=== PATIENT | female | born 1980 | race Two or more races ===

== ENCOUNTER 2019-07-15 02:49 | Inpatient (IN) | payer BC ==
[~2019-07-15] VITALS: Ht 162.6 cm; Wt 49.5 kg
[~2019-07-15 02:49] MED LIST: ALB5IS NEB; AZIT250T8 PO; Ipratropium Bromide NEB; MEDR150I IM
[2019-07-15 03:32] LABS: Basophils # (auto) 0 uL; Basophils % (auto) 0.3 % (0.0-2.0); Eosinophils # (auto) 0.1 uL; Eosinophils % (auto) 0.4 % (0.0-7.0); Hematocrit 41.2 % (36.0-46.0); Hemoglobin 13.7 g/dL (12.2-16.2); Lymphocytes # (auto) 1.2 uL; Lymphocytes % (auto) 6.2 % (10.0-50.0); Mean Corpuscular Hemoglobin 30.5 pg (28.0-32.0); Mean Corpuscular Hgb Conc. 33.2 g/dL (32.0-36.0); Mean Corpuscular Volume 91.9 fL (80.0-100.0); Monocytes # (auto) 0.6 uL; Monocytes % (auto) 3.3 % (0.0-12.0); Neutrophils # (auto) 17.1 uL; Neutrophils % (auto) 89.8 % (37.0-80.0); Nucleated Red Blood Cells % 0.1 %; Platelet Count (auto) 303 10^3/uL (140-450); Red Blood Cells 4.48 10^6/uL (4.0-5.20); Red Cell Distribution Width 13.9 % (11.8-14.3)
[2019-07-15 03:52] LABS: Albumin 3.7 g/dL (3.4-5.0); Anion Gap 8 (5-15); Blood Urea Nitrogen 16 mg/dL (7-18); Calcium 9.1 mg/dL (8.5-10.1); Carbon Dioxide 25 mmol/L (21-32); Chloride 105 mmol/L (98-107); Glucose 111 mg/dL (74-106); Magnesium 1.9 mg/dL (1.6-2.6); Potassium 3.9 mmol/L (3.5-5.1); Sodium 138 mmol/L (136-145)
[2019-07-15 03:55] LABS: Alanine Aminotransferase 33 U/L (13-56); Aspartate Aminotransferase 16 U/L (15-37); BUN/Creatinine Ratio 18.8; Blood Alcohol < 3.0 mg/dL (0-5); GFR African American 96 mL/min; GFR Non-African American 79 mL/min
[2019-07-15] MEDS ORDERED: SODIUM CHLORIDE 0.9% 1,000 ML IV ONE (04:00)
[2019-07-15] MEDS ORDERED: ACETAMINOPHEN 325 MG TAB PO ONE (04:00)
[2019-07-15 04:11] LABS: Alkaline Phosphatase 101 U/L (45-117); Bilirubin, Total 0.4 mg/dL (0.2-1.0); Total Protein 8.4 g/dL (6.4-8.2)
[2019-07-15 04:17] LABS: Lactic Acid w/Reflex 2.6 mmol/L (0.4-2.0)
[2019-07-15 05:55] LABS: Urine Bacteria FEW /hpf (None Seen); Urine Blood Negative /uL (Negative); Urine Specific Gravity 1.017 (1.001-1.035); Urine WBC 1 /hpf (0 - 5)
[2019-07-15 06:09] LABS: Alcohol, Urine < 3.0 mg/dL (0-5); Amphetamine Screen, Urine NEGATIVE (NEGATIVE); Barbiturate Scree,Urine NEGATIVE (NEGATIVE); Benzodiazephine Screen, Urine NEGATIVE (NEGATIVE); Cannabinoid Screen, Urine NEGATIVE (NEGATIVE); Cocaine Screen, Urine NEGATIVE (NEGATIVE); Opiate Scree,Urine NEGATIVE (NEGATIVE); Phencyclidine Screen, Urine NEGATIVE (NEGATIVE)
[2019-07-15] MEDS ORDERED: cefTRIAXone SOD 1,000 MG VL ONE (06:20)
[2019-07-15] MEDS ORDERED: cefTRIAXone 1GM/50ML D5W 50 ML IV ONE ×2 (06:30→11:15)
[2019-07-15] MEDS ORDERED: SODIUM CHLORIDE 0.9% 500 ML IV ONE (06:30)
[2019-07-15] MEDS ORDERED: LACTULOSE 20Gm/30ML SOLN PO PRN (11:00)
[2019-07-15] MEDS ORDERED: NITROGLYCERIN 0.4 MG SL TAB SL PRN (11:00)
[2019-07-15] MEDS ORDERED: AZITHROMYCIN 500MG/ 250ML 250 ML IV ONE (11:00)
[2019-07-15] MEDS ORDERED: MORPHINE SULF INJ 2 MG/ML SYRINGE 1ML IV PRN (11:00)
[2019-07-15] MEDS ORDERED: VANCOMYCIN PER PHARMACY 0 MG IV SCH (11:00)
[2019-07-15] MEDS ORDERED: ALBUTEROL SULF 2.5 MG/0.5ML(0.5%) NEB SOLN NEB PRN (11:00)
[2019-07-15] MEDS ORDERED: PROMETHAZINE HCL 25 MG/ML 1ML IV PRN (11:00)
[2019-07-15] MEDS ORDERED: KETOROLAC TROMETH 30 MG/ML 1ML VIAL IV PRN (11:00)
[2019-07-15] MEDS ORDERED: TEMAZEPAM 15 MG CAP PO PRN (11:00)
[2019-07-15] MEDS ORDERED: ACETAMINOPHEN 500 MG TAB PO PRN (11:00)
[2019-07-15] MEDS ORDERED: traMADol HCL 50 MG TAB PO PRN (11:00)
[2019-07-15] MEDS ORDERED: ENOXAPARIN SOD 40 MG/0.4 ML SYRINGE SC ONE (11:15)
[2019-07-15] MEDS: ALBUTEROL SULF 2.5 MG/0.5ML(0.5%) NEB SOLN NEB SCH ×5 (11:44→23:10)
[2019-07-15] MEDS ORDERED: VANCOMYCIN 1GM/250ML 250 ML IV SCH (12:00)
[2019-07-15 12:37] VITALS: BP 99/66
[2019-07-15 12:48] VITALS: BP 102/74
[2019-07-15] MEDS: SODIUM CHLORIDE 0.9% 1,000 ML IV SCH ×2 (13:00→22:50)
[2019-07-15] MEDS: diphenhdrAMINE HCL 25 MG CAP PO SCH ×2 (14:52→20:10)
[2019-07-15] MEDS: methylPREDNISolone SOD SUCC 40 MG/ML VL IV SCH ×2 (14:52→20:10)
[2019-07-15 16:46] VITALS: BP 114/79
[2019-07-15 22:00] VITALS: BP 112/70
[2019-07-16] MEDS: methylPREDNISolone SOD SUCC 40 MG/ML VL IV SCH (02:50)
[2019-07-16] MEDS: diphenhdrAMINE HCL 25 MG CAP PO SCH (02:50)
[2019-07-16] MEDS: SODIUM CHLORIDE 0.9% 1,000 ML IV SCH ×3 (03:11→11:42)
[2019-07-16 05:00] VITALS: BP 107/74
[2019-07-16 06:01] LABS: Calcium 8.7 mg/dL (8.5-10.1); Potassium 3.8 mmol/L (3.5-5.1)
[2019-07-16 06:07] LABS: Albumin 3.2 g/dL (3.4-5.0); BUN/Creatinine Ratio 15.5; Bilirubin, Total 0.4 mg/dL (0.2-1.0); Total Protein 7.5 g/dL (6.4-8.2)
[2019-07-16] MEDS: ALBUTEROL SULF 2.5 MG/0.5ML(0.5%) NEB SOLN NEB SCH ×3 (06:52→19:14)
[2019-07-16] MEDS: cefTRIAXone 1GM/50ML D5W 50 ML IV SCH (08:34)
[2019-07-16 08:42] VITALS: BP 104/71
[2019-07-16] MEDS ORDERED: cefTRIAXone 1GM/50ML D5W 50 ML IV SCH (09:00)
[2019-07-16] MEDS ORDERED: ENOXAPARIN SOD 40 MG/0.4 ML SYRINGE SC SCH (10:00)
[2019-07-16] MEDS ORDERED: AZITHROMYCIN 500MG/ 250ML 250 ML IV SCH (10:00)
[2019-07-16 13:00] VITALS: BP 113/77
[2019-07-16 17:00] VITALS: BP_SYST 112; BP_SYST 134; BP_DIAS 76; BP_DIAS 79
[2019-07-16 22:00] VITALS: BP 106/70
[2019-07-17] MEDS: ALBUTEROL SULF 2.5 MG/0.5ML(0.5%) NEB SOLN NEB SCH ×4 (00:54→18:04)
[2019-07-17] MEDS: SODIUM CHLORIDE 0.9% 1,000 ML IV SCH (01:29)
[2019-07-17 05:00] VITALS: BP 114/82
[2019-07-17 06:04] LABS: Albumin 2.9 g/dL (3.4-5.0); Potassium 3.4 mmol/L (3.5-5.1)
[2019-07-17 06:08] LABS: BUN/Creatinine Ratio 16.9; Bilirubin, Total 0.2 mg/dL (0.2-1.0); Total Protein 6.5 g/dL (6.4-8.2)
[2019-07-17 06:09] LABS: Basophils # (auto) 0.1 uL; Basophils % (auto) 0.6 % (0.0-2.0); Eosinophils # (auto) 0 uL; Eosinophils % (auto) 0.2 % (0.0-7.0); Hematocrit 35.1 % (36.0-46.0); Hemoglobin 11.9 g/dL (12.2-16.2); Lymphocytes # (auto) 2.7 uL; Mean Corpuscular Hemoglobin 31.2 pg (28.0-32.0); Mean Corpuscular Hgb Conc. 33.8 g/dL (32.0-36.0); Mean Corpuscular Volume 92.2 fL (80.0-100.0); Monocytes # (auto) 0.6 uL; Monocytes % (auto) 6.5 % (0.0-12.0); Neutrophils # (auto) 5.9 uL; Neutrophils % (auto) 63.7 % (37.0-80.0); Nucleated Red Blood Cells % 0.1 %; Platelet Count (auto) 248 10^3/uL (140-450); Red Blood Cells 3.81 10^6/uL (4.0-5.20); Red Cell Distribution Width 14.1 % (11.8-14.3); White Blood Cell 9.3 10^3/uL (4.4-10.8)
[2019-07-17 08:35] VITALS: BP 118/78
[2019-07-17] MEDS: cefTRIAXone 1GM/50ML D5W 50 ML IV SCH (09:47)
[2019-07-17] MEDS: DOXYCYCLINE 100 MG TAB/CAP PO SCH ×2 (10:37→21:38)
[2019-07-17] MEDS ORDERED: POTASSIUM CHL 20 Meq TABLET PO ONE (11:00)
[2019-07-17 13:00] VITALS: BP 110/65
[2019-07-17 16:59] VITALS: BP 108/77
[2019-07-17 21:35] VITALS: BP 107/77
[2019-07-18] MEDS: ALBUTEROL SULF 2.5 MG/0.5ML(0.5%) NEB SOLN NEB SCH ×3 (00:07→12:02)
[2019-07-18 05:00] VITALS: BP 101/70
[2019-07-18 05:35] LABS: Basophils # (auto) 0.1 uL; Basophils % (auto) 1.4 % (0.0-2.0); Eosinophils # (auto) 0.1 uL; Eosinophils % (auto) 2.4 % (0.0-7.0); Hematocrit 41.5 % (36.0-46.0); Hemoglobin 14.3 g/dL (12.2-16.2); Lymphocytes # (auto) 2.4 uL; Lymphocytes % (auto) 48.6 % (10.0-50.0); Mean Corpuscular Hemoglobin 31.2 pg (28.0-32.0); Mean Corpuscular Hgb Conc. 34.5 g/dL (32.0-36.0); Mean Corpuscular Volume 90.4 fL (80.0-100.0); Monocytes # (auto) 0.4 uL; Monocytes % (auto) 8.1 % (0.0-12.0); Neutrophils # (auto) 1.9 uL; Neutrophils % (auto) 39.5 % (37.0-80.0); Nucleated Red Blood Cells % 0.1 %; Platelet Count (auto) 302 10^3/uL (140-450); Red Blood Cells 4.59 10^6/uL (4.0-5.20); White Blood Cell 4.9 10^3/uL (4.4-10.8)
[2019-07-18 05:52] LABS: Albumin 3.5 g/dL (3.4-5.0); Calcium 9.2 mg/dL (8.5-10.1); Potassium 4.7 mmol/L (3.5-5.1)
[2019-07-18 05:56] LABS: Bilirubin, Total 0.3 mg/dL (0.2-1.0); Total Protein 7.9 g/dL (6.4-8.2)
[2019-07-18 09:00] VITALS: BP 115/72
[2019-07-18 09:02] VITALS: BP 101/70
[2019-07-18] MEDS: cefTRIAXone 1GM/50ML D5W 50 ML IV SCH (09:20)
[2019-07-18] MEDS: DOXYCYCLINE 100 MG TAB/CAP PO SCH (09:20)
[2019-07-18 13:00] VITALS: BP 100/63
== END 2019-07-18 15:26 | disposition home or self-care (01) | DRG 871 ==
LOC: ER 02:56 → TELE-CENTR 02:57 → CENTRAL 07-16 12:37
PROVIDERS: ADMIT Internal Medicine; ATTEND Internal Medicine
DX: A41.9 Sepsis, unspecified organism (principal); J18.9 Pneumonia, unspecified organism; J45.909 Unspecified asthma, uncomplicated; K59.00 Constipation, unspecified; Z80.0 Family history of malignant neoplasm of digestive organs; Z82.49 Family history of ischemic heart disease and other diseases of the circulatory system; Z83.3 Family history of diabetes mellitus; Z88.1 Allergy status to other antibiotic agents; Z91.041 Radiographic dye allergy status
CPT/HCPCS: 36415; 71045; 71046; 71250; 74176; 80053; 80307; 80320; 81001; 83605; 83735; 84484; 84702; 85025; 85652; 86225; 86235; 87040; 87070; 87077; 87186; 87205; 93005; 93971; 94640; 96361; 96365; 96366; G0378; J0696

== ENCOUNTER 2020-06-09 16:28 | Inpatient (IN) | payer BC ==
[~2020-06-09] VITALS: Ht 157.5 cm; Wt 59.7 kg
[2020-06-09 17:32] LABS: Urine Bacteria FEW /hpf (None Seen); Urine Blood Negative /uL (Negative); Urine Specific Gravity 1.013 (1.001-1.035); Urine WBC 4 /hpf (0 - 5)
[2020-06-09 19:48] LABS: Basophils # (auto) 0.2 10 ^3/uL (0-0.2); Basophils % (auto) 2.9 % (0.0-2.0); Eosinophils # (auto) 0.3 10 ^3/uL (0-0.8); Eosinophils % (auto) 3.8 % (0.0-7.0); Hematocrit 44.1 % (36.0-46.0); Hemoglobin 15.1 g/dL (12.2-16.2); Lymphocytes # (auto) 2.3 10 ^3/uL (0.4-5.4); Lymphocytes % (auto) 33.6 % (10.0-50.0); Mean Corpuscular Hemoglobin 31.5 pg (28.0-32.0); Mean Corpuscular Hgb Conc. 34.1 g/dL (32.0-36.0); Mean Corpuscular Volume 92.3 fL (80.0-100.0); Monocytes # (auto) 0.6 10 ^3/uL (0-1.3); Monocytes % (auto) 9.1 % (0.0-12.0); Neutrophils # (auto) 3.4 10 ^3/uL (1.6-8.6); Neutrophils % (auto) 50.6 % (37.0-80.0); Nucleated Red Blood Cells % 0.1 %; Platelet Count (auto) 315 10^3/uL (140-450); Red Blood Cells 4.78 10^6/uL (4.0-5.20); Red Cell Distribution Width 13.8 % (11.8-14.3); White Blood Cell 6.7 10^3/uL (4.4-10.8)
[2020-06-09 20:03] LABS: Albumin 4.1 g/dL (3.4-5.0); Calcium 9.4 mg/dL (8.5-10.1); Potassium 4.1 mmol/L (3.5-5.1)
[2020-06-09 20:06] LABS: BUN/Creatinine Ratio 23.7; Bilirubin, Total 0.5 mg/dL (0.2-1.0); Total Protein 8.3 g/dL (6.4-8.2)
[2020-06-09] MEDS ORDERED: metroNIDAZOLE 500MG/100ML 100 ML IV ONE (23:15)
[2020-06-09] MEDS ORDERED: cefTRIAXone 1GM/50ML D5W 50 ML IV ONE (23:15)
[2020-06-10] MEDS: metroNIDAZOLE 500MG/100ML 100 ML IV SCH ×3 (06:00→23:24)
[2020-06-10] MEDS ORDERED: SODIUM CHLORIDE 0.9% 1,000 ML IV SCH (06:00)
--- NOTE | 2020-06-10 08:30 | NUR ---
MS admit from ER MELVINAJEF admitted to tele/MS after SBAR received. Patient oriented to Claritza Castro, primary RN, unit, room, bed, and unit policies regarding patient care and visiting hours. Patient weighed by bedscale and encouraged to call if they need something. All questions and concerns addressed, patient verbalized understanding. Note: PT IS AWAKE AND ALERT, NO SIGNS OF DISTRESS AT THIS TIME, WILL CONTINUE TO MONITOR.
[2020-06-10 09:00] VITALS: BP 121/76
[2020-06-10] MEDS: cefTRIAXone 1GM/50ML D5W 50 ML IV SCH (09:14)
[2020-06-10] MEDS: PANTOPRAZOLE 40 MG/10 ML VIAL INJ IV SCH (09:14)
[2020-06-10 11:39] LABS: INR 1.03 (0.9-1.15); Partial Thromboplastin Time 32.2 sec (23.0-31.2)
[2020-06-10 13:00] VITALS: BP 130/87
[2020-06-10] MEDS ORDERED: ALBUTEROL SULF 2.5 MG/0.5ML(0.5%) NEB SOLN NEB PRN (13:30)
[2020-06-10] MEDS ORDERED: IPRATROPIUM BROM 0.5 MG/2.5ML INH SOL NEB PRN (13:30)
[2020-06-10 15:35] VITALS: BP 130/87
[2020-06-10 17:00] VITALS: BP 126/86
--- NOTE | 2020-06-10 17:05 | NUR ---
HEADACHE AND ABDOMINAL PAIN SPOKE WITH CEMENTER HAND DONTRELL, MADE AWARE PT IS COMPLAINING OF HEADACHE AND ABDOMINAL PAIN 01/29, PT HAS ONLY MORPHINE FOR SEVERE PAIN, RECEIVED ORDER TO GIVE TORADOL 30MG IV ONE TIME DOSE.
[2020-06-10] MEDS ORDERED: KETOROLAC TROMETH 30 MG/ML 1ML VIAL IV ONE (17:30)
[2020-06-10] MEDS: SODIUM CHLORIDE 0.9% 1,000 ML IV SCH (18:41)
--- NOTE | 2020-06-10 19:01 | NUR ---
Respiratory note: ASSESSED PT FOR PRN MED NEB AT THIS TIME, PT DENIES SOB AT THIS TIME, NO RESP DISTRESS NOTED, NO TX INDICATED. PULSE OX 95% ON RA, HR 106, RR 20
[2020-06-10 22:00] VITALS: BP 123/82
[2020-06-11 05:00] VITALS: BP 107/69
[2020-06-11 05:23] LABS: Basophils # (auto) 0 10 ^3/uL (0-0.2); Basophils % (auto) 0.5 % (0.0-2.0); Eosinophils # (auto) 0.1 10 ^3/uL (0-0.8); Eosinophils % (auto) 1.4 % (0.0-7.0); Hemoglobin 13.6 g/dL (12.2-16.2); Lymphocytes # (auto) 1.2 10 ^3/uL (0.4-5.4); Lymphocytes % (auto) 20.3 % (10.0-50.0); Mean Corpuscular Hemoglobin 31.1 pg (28.0-32.0); Mean Corpuscular Hgb Conc. 33.2 g/dL (32.0-36.0); Mean Corpuscular Volume 93.6 fL (80.0-100.0); Monocytes # (auto) 0.4 10 ^3/uL (0-1.3); Monocytes % (auto) 6.9 % (0.0-12.0); Neutrophils # (auto) 4.2 10 ^3/uL (1.6-8.6); Neutrophils % (auto) 70.9 % (37.0-80.0); Platelet Count (auto) 247 10^3/uL (140-450); Red Blood Cells 4.38 10^6/uL (4.0-5.20); Red Cell Distribution Width 13.4 % (11.8-14.3); White Blood Cell 5.9 10^3/uL (4.4-10.8)
[2020-06-11] MEDS: SODIUM CHLORIDE 0.9% 1,000 ML IV SCH (05:31)
[2020-06-11 05:42] LABS: BUN/Creatinine Ratio 38.3; Calcium 8.6 mg/dL (8.5-10.1); Potassium 3.7 mmol/L (3.5-5.1)
--- NOTE | 2020-06-11 06:00 | NUR ---
CHG WIPES APPLIED. NEW BED LINEN CHANGE AND GOWN/SOCKS REPLACED. PT NPO. Addendum: 06/11/20 at 0656 by Ambrose Skinner RN HAS BEEN NPO
[2020-06-11] MEDS: metroNIDAZOLE 500MG/100ML 100 ML IV SCH ×3 (06:22→23:18)
--- NOTE | 2020-06-11 06:25 | NUR ---
Respiratory note: ASSESSED PT FOR PRN MED NEB AT THIS TIME, PT DENIES SOB AT THIS TIME, NO RESP DISTRESS NOTED, NO TX INDICATED. PULSE OX 100% ON RA, HR 106, RR 16. PATIENT KNOWS TO HAVE RT PAGED IF TX IS NEEDED.
--- NOTE | 2020-06-11 07:47 | NUR ---
Opening Shift Note: Assumed care of patient, awake and alert. No S/S of distress/SOB or pain. Bed in lowest locked position, side rails up x 2, call light within reach. Patient NPO since 0000. Patient instructed on POC and to call for assist PRN, will continue to monitor for changes Q1hr and PRN.
--- NOTE | 2020-06-11 08:10 | NUR ---
COVID SWAB OBTAINED AND WALKED TO LAB.
[2020-06-11 09:00] VITALS: BP 117/76
--- NOTE | 2020-06-11 09:15 | NUR ---
PATIENT TAKEN DOWN TO OR, NO DISTRESS NOTED.
[2020-06-11] MEDS ORDERED: HYDROmorphone HCL 2 MG/ML VL ONE (10:03)
[2020-06-11] MEDS ORDERED: PROPOFOL 10 MG/ML 20 ML IV ONE (10:03)
[2020-06-11] MEDS ORDERED: DexAMETHasone SOD PHOS 10MG/1ML VIAL INJ ONE (10:03)
[2020-06-11] MEDS ORDERED: MIDAZOLAM HCL 1MG/1ML-2 ML VIAL ONE (10:03)
[2020-06-11] MEDS ORDERED: fentaNYL CITRATE 100 MCG/2 ML VL ONE (10:03)
[2020-06-11] MEDS ORDERED: ONDANSETRON HCL 4 MG/2 ML VIAL ONE (10:03)
[2020-06-11] MEDS ORDERED: NEOSTIGMINE 1 MG/ML INJ (10mg/10ML VIAL) ONE (10:03)
[2020-06-11] MEDS ORDERED: KETOROLAC TROMETH 30 MG/ML 1ML VIAL ONE (10:03)
[2020-06-11] MEDS ORDERED: GLYCOPYRROLATE 0.2 MG/ML 1ML VIAL ONE (10:03)
[2020-06-11] MEDS ORDERED: ceFAZolin 1GM VL ONE (10:32)
[2020-06-11] MEDS ORDERED: ETOMIDATE (2MG/ML) 20ML VIAL IV ONE (10:32)
[2020-06-11] MEDS ORDERED: MEPERIDINE HCL (25 MG/ML) 1ML VIAL ONE (11:18)
[2020-06-11] MEDS ORDERED: HYDROmorphone HCL 2 MG/ML VL IV PRN ×2 (11:30→12:00)
[2020-06-11] MEDS ORDERED: ONDANSETRON HCL 4 MG/2 ML VIAL IV PRN (12:00)
--- NOTE | 2020-06-11 12:31 | NUR ---
PATIENT BACK TO UNIT FROM OR. NO DISTRESS NOTED.
[2020-06-11] MEDS: cefTRIAXone 1GM/50ML D5W 50 ML IV SCH (12:59)
[2020-06-11 13:00] VITALS: BP 118/73
[2020-06-11] MEDS: PANTOPRAZOLE 40 MG/10 ML VIAL INJ IV SCH (13:00)
[2020-06-11] MEDS: ONDANSETRON HCL 4 MG/2 ML VIAL IV PRN ×2 (14:43→18:59)
[2020-06-11] MEDS: D5W/SOD CHL 0.45%/KCL 20MEQ 1,000 ML IV SCH ×2 (16:33→23:19)
[2020-06-11 17:00] VITALS: BP 120/76
--- NOTE | 2020-06-11 18:47 | NUR ---
CLOSING NOTE: PATIENT RESTING IN BED. NO S/S OF DISTRESS. CARE ENDORSED.
[2020-06-11 22:00] VITALS: BP 112/71
[2020-06-11] MEDS: MORPHINE SULFATE 4 MG/ML SYR/VIAL IV PRN (23:18)
[2020-06-12] VITALS (8 sets, daily range): BP systolic 96–120; BP diastolic 63–85
[2020-06-12] MEDS: metroNIDAZOLE 500MG/100ML 100 ML IV SCH (06:01)
[2020-06-12] MEDS: ONDANSETRON HCL 4 MG/2 ML VIAL IV PRN (06:02)
[2020-06-12] MEDS: MORPHINE SULFATE 4 MG/ML SYR/VIAL IV PRN (06:02)
[2020-06-12 06:46] LABS: Basophils # (auto) 0 10 ^3/uL (0-0.2); Basophils % (auto) 0.3 % (0.0-2.0); Eosinophils # (auto) 0 10 ^3/uL (0-0.8); Hematocrit 39.4 % (36.0-46.0); Hemoglobin 13.3 g/dL (12.2-16.2); Lymphocytes # (auto) 1.3 10 ^3/uL (0.4-5.4); Lymphocytes % (auto) 14.2 % (10.0-50.0); Mean Corpuscular Hemoglobin 31.1 pg (28.0-32.0); Mean Corpuscular Hgb Conc. 33.7 g/dL (32.0-36.0); Mean Corpuscular Volume 92.1 fL (80.0-100.0); Monocytes # (auto) 0.8 10 ^3/uL (0-1.3); Monocytes % (auto) 9.3 % (0.0-12.0); Neutrophils # (auto) 6.7 10 ^3/uL (1.6-8.6); Neutrophils % (auto) 76.2 % (37.0-80.0); Platelet Count (auto) 259 10^3/uL (140-450); Red Blood Cells 4.27 10^6/uL (4.0-5.20); Red Cell Distribution Width 13.4 % (11.8-14.3); White Blood Cell 8.9 10^3/uL (4.4-10.8)
[2020-06-12 07:06] LABS: Albumin 3.4 g/dL (3.4-5.0); BUN/Creatinine Ratio 19.6; Calcium 9.4 mg/dL (8.5-10.1); Potassium 4.3 mmol/L (3.5-5.1)
[2020-06-12 07:09] LABS: Bilirubin, Total 0.6 mg/dL (0.2-1.0); Total Protein 7.3 g/dL (6.4-8.2)
[2020-06-12] MEDS: D5W/SOD CHL 0.45%/KCL 20MEQ 1,000 ML IV SCH (07:30)
--- NOTE | 2020-06-12 07:32 | NUR ---
closing note no s/s of distress. endorsed care to day shift MARCELINO Morataya.
[2020-06-12] MEDS: cefTRIAXone 1GM/50ML D5W 50 ML IV SCH (10:32)
[2020-06-12] MEDS: PANTOPRAZOLE 40 MG/10 ML VIAL INJ IV SCH (10:33)
[2020-06-12] MEDS: ACETAMINOPHEN 325 MG TAB PO PRN ×2 (11:46→21:32)
[2020-06-12] MEDS: SODIUM CHLORIDE 0.9% 1,000 ML IV SCH (12:34)
[2020-06-12] MEDS ORDERED: AMOX500T86 PO (13:18)
[2020-06-12] MEDS ORDERED: METR500T PO (13:18)
--- NOTE | 2020-06-12 14:05 | NUR ---
Nutrition Assessment Notes Please refer to link for full assessment notes. Est Energy needs: 3330-3262 kcals (25-30 kcal/kgBW) Est Protein needs: 45-58 gms/day (0.8-1.0 gm/kgBW) Will continue to monitor and reassess prn. Addendum: 06/12/20 at [address] Amended: Links added.
--- NOTE | 2020-06-12 14:11 | NUR ---
ASSESSED PT FOR PRN MED NEB, PT ON RA WITH SPO2 98%, HR 95, RR 18 WITH CLEAR BS NO INDICATION FOR PRN BREATHING TX AT THIS TIME. WILL CONTINUE TO MONITOR PT.
[2020-06-12] MEDS: METOCLOPRAMIDE HCL 10 MG TAB PO SCH ×2 (15:07→21:37)
--- NOTE | 2020-06-12 18:00 | NUR ---
PAGED DR VALADEZ FOR SURGICAL CLEARANCE PATIENT HAS PASSED GAS AND TOLERATED A LITTLE BIT OF HER LUNCH, HOWEVER PATIENT STATES SHE IS NOW FEELING NAUSEOUS AND FEELS THOUGH SHE NEEDS TO STAY ANOTHER NIGHT. WILL NOTIFY DR VALADEZ ONCE HE CALLS BACK, AND HOLD DISCHARGE PER DR BRIGGS ORDER.
--- NOTE | 2020-06-12 19:26 | NUR ---
PT ASSESSED FOR PRN MED NEB TX. SPO2 96% ON RA, HR 91. PT DENIES ANY RESPIRATORY DISTRESS. NO TX INDICATED. PT IS AWARE TO HAVE RT PAGED IF TX NEEDED.
--- NOTE | 2020-06-12 19:35 | NUR ---
Opening Shift Note Assumed care of patient. Pt is awake and alert, oriented X 4. No S/S of respiratory distress. Pt denies nausea and pain at this time. Bed is in lowest locked position, bed rails up X 2, call light is within reach. Instructed on POC and to call for assistance PRN. Will continue to monitor for changes Q1hr and PRN.
--- NOTE | 2020-06-12 21:00 | NUR ---
Assessment Pt was assessed for nausea after eating jelly. No nausea, no abdominal discomfort reported. Will continue to monitor PRN.
[2020-06-13 05:00] VITALS: BP 106/67
[2020-06-13] MEDS: SODIUM CHLORIDE 0.9% 1,000 ML IV SCH (05:10)
[2020-06-13] MEDS: METOCLOPRAMIDE HCL 10 MG TAB PO SCH ×2 (05:58→14:00)
[2020-06-13 08:00] VITALS: BP 123/84
[2020-06-13 08:56] VITALS: BP 123/84
[2020-06-13] MEDS: cefTRIAXone 1GM/50ML D5W 50 ML IV SCH (09:00)
--- NOTE | 2020-06-13 09:42 | NUR ---
Respiratory note: PT SEEN AND ASSESSED FOR PRN MEDNEB TX. HR 81, RR 16, SPO2 95% ON ROOM AIR. BREATH SOUNDS CLEAR/DIMINISHED T/O. PT DENIES SOB. NO S/S OF DISTRESS. MEDNEB TX NOT INDICATED AT THIS TIME. PT IS AWARE TO CALL FOR RT IF NEEDED.
[2020-06-13] MEDS: PANTOPRAZOLE 40 MG/10 ML VIAL INJ IV SCH (10:00)
--- NOTE | 2020-06-13 10:50 | NUR ---
DR SHAIKH DALLAS
[2020-06-13 12:26] VITALS: BP 123/84
[2020-06-13 13:00] VITALS: BP 120/84
--- NOTE | 2020-06-13 15:18 | NUR ---
Discharge instructions given as ordered. Encourage to follow up with PMD as instructed. All questions and concerns addressed. Patient verbalized understanding. Medication reconciliation form completed and copy given to patient. No Home medications held in Pharmacy and none to returned to patient, and no needed vaccines given. IV removed with catheter intact, pressure dressing applied. Patient taken to vehicle via wheelchair with all personal belongings, accompanied by staff and family member. No distress noted at time of departure.
[2020-06-13 15:53] VITALS: BP 120/84
== END 2020-06-13 15:15 | disposition home or self-care (01) | DRG 419 ==
LOC: ER 16:28 → OVERFLOW 16:29 → CENTRAL 06-10 08:30
PROVIDERS: ADMIT Nurse Practitioner; ATTEND Internal Medicine
PROC: 3E013GC Introduction of Other Therapeutic Substance into Subcutaneous Tissue, Percutaneous Approach (ICD-10-PCS; 2020-06-11)
PROC: 0FT44ZZ Resection of Gallbladder, Percutaneous Endoscopic Approach (ICD-10-PCS; principal; 2020-06-11 10:25)
DX: K80.00 Calculus of gallbladder with acute cholecystitis without obstruction (principal); E11.9 Type 2 diabetes mellitus without complications; I10 Essential (primary) hypertension; I25.10 Atherosclerotic heart disease of native coronary artery without angina pectoris; J45.909 Unspecified asthma, uncomplicated; Z20.828 Contact with and (suspected) exposure to other viral communicable diseases; Z88.1 Allergy status to other antibiotic agents; Z91.041 Radiographic dye allergy status
CPT/HCPCS: 36415; 71045; 74176; 76705; 78226; 80048; 80053; 81001; 81025; 83735; 84702; 85025; 85610; 85730; 86850; 86900; 86901; 87086; 87426; C9113; G0378; J0690; J0696; J1100; J1885; J2250; J2405; J2704; J3490

== ENCOUNTER 2025-03-19 07:09 | Emergency (ER) | payer BC ==
[~2025-03-19] VITALS: Ht 157.5 cm; Wt 56.9 kg
[~2025-03-19 07:09] MED LIST changes: +AMOX500T86 PO; +AZIT-185 PO; -AZIT250T8 PO; +METR500T PO
[2025-03-19 07:12] VITALS: PULSE 91; RESP 20; O2SAT 95
--- NOTE | 2025-03-19 07:28 | ED.PDOC ---
History of Present Illness HPI Comments 44-year-old female with a history of asthma, and lupus presents to the ED for with a chief complaint of 8/10 sharp midline cervical back pain with the associated slight shortness of breath. Patient states her pain started this morning who was awoken due to the pain. Patient notes of no alleviating factors, but worsening factors of deep inspiration, and with the walking/movement. Patient denies nausea, vomiting, diarrhea, any previous trauma, recent surgeries, or recent travel. Denies history of chronic steroid use or history of osteoporosis Denies history of cancer Denies fevers chills night sweats nausea vomiting unintentional weight loss Denies abdominal tearing pain Denies syncope Denies urinary changes or urinary incontinence Denies numbness tingling of the groin her inner thigh Denies previous back procedures or surgeries Chief Complaint: Back Pain Time Seen by MD: 07:21 Primary Care Provider: YuliyaOA Reviewed Notes: Nurses Notes, Medications, Allergies Allergies: Coded Allergies: Iodine (Verified Allergy, Intermediate, 07/15/19) Levofloxacin (Verified Allergy, Unknown, ITCHING AND REDDNESS, 07/15/19) Vancomycin (Verified Adverse Reaction, Mild, 07/15/19) hives on neck skin warm to touch Home Meds Active Scripts Metronidazole (Flagyl) 500 Mg Tab, 500 MG PO Q8HR, #15 TAB Prov:ROLLY POST MD 06/12/20 Amoxicillin & Pot Clavulanate (Augmentin) 500 Mg Tab, 1 TAB PO BID, #10 TAB Prov:ROLLY POST MD 06/12/20 [Ipratropium Malone] 0.5 MG/2.5 ML IH No Conflict Check, 0.5 MG NEB Q4HWA, #60 ML Prov:DONNY SIMON MD 01/29/15 Albuterol Sulfate (Ventolin) 2.5 Mg/0.5 Ml Nb, 2.5 MG NEB Q4HWA, #60 ML Prov:DONNY SIMON MD 01/29/15 Azithromycin (ZITHROMAX TABLET) 250 Mg Tb, 250 MG PO DAILY, #4 TAB Prov:DONNY SIMON MD 01/29/15 Reported Medications Medroxyprogesterone Acetate (Depo-Provera Contraceptiv) 150 Mg/Ml Inj, 150 MG IM [id number] 12/25/11 Information Source: Patient Mode of Arrival: Wheelchair Severity: Moderate Timing: Hours Duration: Since onset, Hours Prehospital treatment: None Past Medical History PAST MEDICAL HISTORY: Asthma Surgical History: VAMPER History: No Pertinent VAMPER History Family History Family History: Reviewed,noncontributory to illness Social History Smoker: Non-Smoker Alcohol: Denies ETOH Use Drugs: Denies Drug Use Lives In: Home Constitutional: denies: chills, diaphoresis, fatigue, fever, malaise, sweats, weakness, others EENTM: denies: blurred vision, double vision, ear bleeding, ear discharge, ear drainage, ear pain, ear ringing, eye pain, eye redness, hearing loss, mouth pain, mouth swelling, nasal discharge, nose bleeding, nose congestion, nose pain, photophobia, tearing, throat pain, throat swelling, voice changes, others Respiratory: denies: cough, hemoptysis, orthopnea, SOB at rest, shortness of breath, SOB with excertion, stridor, wheezing, others Cardiovascular: denies: chest pain, dizzy spells, diaphoresis, Dyspnea on exertion, edema, irregular heart beat, left arm pain, lightheadedness, palpitations, PND, syncope, others Gastrointestinal: denies: abdomen distended, abdominal pain, blood streaked bowels, constipated, diarrhea, dysphagia, difficulty swallowing, hematemesis, melena, nausea, poor appetite, poor fluid intake, rectal bleeding, rectal pain, vomiting, others Genitourinary: denies: abnormal vagina bleeding, burning, dyspareunia, dysuria, flank pain, frequency, hematuria, incontinence, pain, , vagina discharge, urgency, others Neurological: denies: dizziness, fainting, headache, left sided numbness, left sided weakness, numbness, paresthesia, pre-existing deficit, right sided numbness, right sided weakness, seizure, speech problems, tingling, tremors, weakness, others Musculoskeletal: reports: back pain; denies: gout, joint pain, joint swelling, muscle pain, muscle stiffness, neck pain, others Integumetry: denies: bruises, change in color, change in hair/nails, dryness, laceration, lesions, lumps, rash, wounds, others Allergic/Immunocompromised: denies: Difficulty Healing, Frequent Infections, Hives, Itching, others Hematologic/Lymphatic: denies: anemia, blood clots, easy bleeding, easy bruising, swollen glands, others Endocrine: denies: excessive hunger, excessive sweating, excessive thirst, excessive urination, flushing, intolerance to cold, intolerance to heat, unexplained weight gain, unexplained weight loss, others Psychiatric: denies: anxiety, bipolar disorder, depression, hopeless, panic disorder, schizophrenia, sleepless, suicidal, others All Other Systems: Reviewed and Negative Physical Exam General Appearance: Moderate Distress, Normal HEENT: Normal ENT Inspection, Pharynx Normal, TMs Normal Neck: Full Range of Motion, Non-Tender, Normal, Normal Inspection Respiratory: Chest Non-Tender, Lungs Clear, No Accessory Muscle Use, No Respiratory Distress, Normal Breath Sounds Cardiovascular: No Edema, No JVD, No Murmur, No Gallop, Normal Peripheral Pulses, Regular Rate/Rhythm Breast Exam: Deferred Gastrointestinal: Non Tender, No Pulsatile Mass, Normal Bowel Sounds, Soft Genitalia: Deferred Pelvic: Deferred Rectal: Deferred Extremities: No calf tenderness, Normal capillary refill, Normal inspection, Normal range of motion, Non-tender, No pedal edema Musculoskeletal : Location: Bilateral Extremity Location: Back (No gross abnormality, no pain with TTP, no midline tenderness, no paraspinal TTP) Apperance: Normal Neurologic: Alert, No Motor Deficits, Normal Affect, Normal Mood, No Sensory Deficits Cerebellar Function: Normal Reflexes: Normal Skin: Dry, Normal Color, Warm Lymphatic: No Adenopathy Was a procedure done? Was a procedure done?: No X-Ray, Labs, Meds, VS Vital Signs Date Time Temp Pulse Resp B/P (MAP) Pulse Ox O2 Delivery O2 Flow Rate FiO2 03/19/25 09:58 98.4 66 16 128/64 (85) 98 98.4 03/19/25 09:58 66 16 98 Room Air 03/19/25 07:12 98.2 91 20 145/85 (105) 95 98.2 03/19/25 07:12 91 20 95 Room Air* 0 21 03/19/25 07:12 98.2 91 20 145/85 (105) 95 98.2 Lab Test 03/19/25 08:06 03/19/25 07:51 Range/Units White Blood Count 6.4 4.4-10.8 10^3/uL Red Blood Count 5.11 4.0-5.20 10^6/uL Hemoglobin 16.2 12.2-16.2 g/dL Hematocrit 46.0 36.0-46.0 % Mean Corpuscular Volume 90.0 80.0-100.0 fL Mean Corpuscular Hemoglobin 31.6 28.0-32.0 pg Mean Corpuscular Hemoglobin Concent 35.1 32.0-36.0 g/dL Red Cell Distribution Width 13.3 11.8-14.3 % Platelet Count 307 140-450 10^3/uL Mean Platelet Volume 7.2 6.9-10.8 fL Neutrophils (%) (Auto) 58.6 37.0-80.0 % Lymphocytes (%) (Auto) 28.5 10.0-50.0 % Monocytes (%) (Auto) 7.8 0.0-12.0 % Eosinophils (%) (Auto) 4.7 0.0-7.0 % Basophils (%) (Auto) 0.4 0.0-2.0 % Neutrophils # (Auto) 3.7 1.6-8.6 10 ^3/uL Lymphocytes # (Auto) 1.8 0.4-5.4 10 ^3/uL Monocytes # (Auto) 0.5 0-1.3 10 ^3/uL Eosinophils # (Auto) 0.3 0-0.8 10 ^3/uL Basophils # (Auto) 0 0-0.2 10 ^3/uL Nucleated Red Blood Cells 0.2 % Erythrocyte Sedimentation Rate 18 0-20 mm/hr Sodium Level 139 136-145 mmol/L Potassium Level 3.9 3.5-5.1 mmol/L Chloride Level 105 98-107 mmol/L Carbon Dioxide Level 25 20-31 mmol/L Anion Gap 9 5-15 Blood Urea Nitrogen 17 9-23 mg/dL Creatinine 0.74 0.550-1.02 mg/dL Glomerular Filtration Rate Calc 102 >90 mL/min BUN/Creatinine Ratio 23.0 H 10.0-20.0 Serum Glucose 88 74-106 mg/dL Calcium Level 10.5 H 8.7-10.4 mg/dL Total Bilirubin 0.6 0.2-1.0 mg/dL Aspartate Amino Transferase (AST) 18 13-40 U/L Alanine Aminotransferase (ALT) 23 7-40 U/L Alkaline Phosphatase 106 46-116 U/L Troponin I High Sensitivity < 3 L </=34 ng/L C-Reactive Protein High Sensitivity 0.34 <1.0 mg/dL Total Protein 8.0 5.7-8.2 g/dL Albumin 4.9 H 3.2-4.8 g/dL Urine Color Light-yellow Yellow Urine Clarity Clear Clear Urine pH 6.0 5.0-9.0 Urine Specific [place] 1.027 1.001-1.035 Urine Protein Negative Negative Urine Ketones Negative Negative Urine Blood Negative Negative /uL Urine Nitrite Negative Negative Urine Bilirubin Negative Negative Urine Urobilinogen Normal Negative mg/dL Urine Leukocyte Esterase 1+ Negative /uL Urine RBC 2 0 - 4 /hpf Urine Microscopic WBC 4 0-5 /HPF Urine Squamous Epithelial Cells Few <5 /hpf Urine Bacteria None seen None Seen /hpf Urine Mucus Few None Seen Urine Glucose Normal Normal mg/dL X-Ray, Labs, Meds, VS Comment 44-year-old female with a history of asthma, and lupus presents to the ED for with a chief complaint of 8/10 sharp midline cervical back pain with the associated slight shortness of breath. Patient arrives alert and oriented, ABC's intact, afebrile, vital signs stable, saturating well in room air CBC was ordered to exclude anemia, blood loss, or infection. CMP was ordered to exclude electrolyte abnormalities, renal failure, dehydration, hyperglycemia and/or liver enzyme abnormalities. Troponin was ordered to rule out myocardial infarction, or congestive heart failure. Urinalysis was ordered to rule out UTI or hematuria. Sed rate and CRP ordered to rule out inflammatory processes: Chest x-ray ordered to rule out pneumonia, cardiomegaly, tension pneumothorax, congestive heart failure: Diagnostic imaging ordered by me and results interpreted by radiology :IMPRESSION: No acute cardiopulmonary disease. Labs in the ED showed: Anion Gap normal at 9.0, creatinine normal at 0.7, GFR normal at 102, BUN slightly elevated 23.0, calcium slightly elevated at 10.5, albumin slightly elevated at 4.9 Patient was given:_. Tolerated medications with no adverse reaction. On reevaluation, patient had symptomatic improvement. Patient is stable for discharge at this time. External notes reviewed. Test results and diagnostic imaging interpreted. All diagnostic findings, discharge care, education and instructions provided Follow-up with PCP in 2 to 3 days Patient verbalized understanding and agreed to treatment plan Vital signs stable, afebrile, no acute distress noted Patient ambulatory with strong steady gait Advised to return precautions for any new or worsening symptoms, return to ER immediately for re-evaluation Patient is aware that the purpose of this visit was for an acute medical emergency requiring emergent stabilization. Chronic conditions, including malignancies have not been ruled out. Patient is instructed to follow up with PCP as directed and discharge instructions for continued care and workup. If unable to arrange follow-up, patient is to return to the emergency department for reassessment. Patient (parent or legal guardian if applicable) was given verbal and written discharge instructions and acknowledges understanding. Additional MDM Review of External, Non-ED records: External records reviewed. Discussion with independent historian (EMS, family) history obtained from the patient/parents (if applicable) at bedside Chronic conditions affecting care: None Social determinants of health affecting care: None Time of 1ST Reevaluation: 07:52 Reevaluation 1ST: Unchanged Patient Education/Counseling: Diagnosis, Treatment, Need For Follow Up Family Education/Counseling: No Family Present SEPSIS Sepsis Screen Physician Orders Chest Two Views Routine (03/19/25 07:51) Vital Signs Date Time Temp Pulse Resp B/P (MAP) Pulse Ox O2 Delivery O2 Flow Rate FiO2 03/19/25 09:58 98.4 66 16 128/64 (85) 98 98.4 03/19/25 09:58 66 16 98 Room Air 03/19/25 07:12 98.2 91 20 145/85 (105) 95 98.2 03/19/25 07:12 91 20 95 Room Air* 0 21 03/19/25 07:12 98.2 91 20 145/85 (105) 95 98.2 Laboratory Tests Test 03/19/25 08:06 White Blood Count 6.4 10^3/uL (4.4-10.8) Departure 1 Departure Time of Disposition: 10:06 Impression: Primary Impression: Back pain Qualified Codes: M54.6 - Pain in thoracic spine Disposition: 01 HOME / SELF CARE / HOMELESS Condition: Stable e-Prescriptions Amoxicillin & Pot Clavulanate (AUGMENTIN TABLET) 875 Mg Tb 875 MG PO BID for 7 Days, #14 TAB 0 Refills Prov: FE ALONZO RELEASE OF INFORMATION SPECIALIST 03/19/25 Critical Care Note Critical Care Time?: No Stability Stability form required: No Heart Score Heart Score: Heart Score Response (Comments) Value History N/A 0 EKG N/A 0 Age N/A 0 Risk Factors N/A 0 Troponin N/A 0 Total 0 I personally scribed for FE ALONZO NP ([email or web address]) on 03/19/25 at 07:28. Electronically submitted by Hermes Castanon ([email or web address]). I personally scribed for FE ALONZO NP ([email or web address]) on 03/19/25 at 07:38. Electronically submitted by Hermes Castanon ([email or web address]). I personally scribed for FE ALONZO NP ([email or web address]) on 03/19/25 at 08:34. Electronically submitted by Hermes Castanon ([email or web address]). I personally scribed for FE ALONZO NP ([email or web address]) on 03/19/25 at 08:56. Electronically submitted by Hermes Castanon ([email or web address]). FE ALONZO NP Mar 19, 2025 07:28
[2025-03-19 08:17] LABS: Hematocrit 46.0 % (36.0-46.0); Hemoglobin 16.2 g/dL (12.2-16.2); Mean Corpuscular Hemoglobin 31.6 pg (28.0-32.0); Mean Corpuscular Volume 90.0 fL (80.0-100.0); Nucleated Red Blood Cells % 0.2 %
[2025-03-19 08:26] LABS: Urine Protein, UAD Negative (Negative)
--- NOTE | 2025-03-19 08:32 | DVH ---
XY CHEST TWO VIEWS ROUTINE CLINICAL HISTORY: r/o pneumonia, tension pneumo, cardiomegaly COMPARISON: None TECHNIQUE: Frontal and lateral view of the chest was obtained FINDINGS: Lines and Tubes: None Lungs: No focal consolidation. Pleura: No effusion. No pneumothorax. Cardiomediastinal contours: Unremarkable Bones: No acute osseous abnormality. IMPRESSION: No acute cardiopulmonary disease.
[2025-03-19 08:36] LABS: Alanine Aminotransferase 23 U/L (7-40); Alkaline Phosphatase 106 U/L (46-116); Anion Gap 9 (5-15); BUN/Creatinine Ratio 23.0 (10.0-20.0); Bilirubin, Total 0.6 mg/dL (0.2-1.0); Blood Urea Nitrogen 17 mg/dL (9-23); Carbon Dioxide 25 mmol/L (20-31); Chloride 105 mmol/L (98-107); Glucose 88 mg/dL (74-106); Potassium 3.9 mmol/L (3.5-5.1); Sodium 139 mmol/L (136-145); Total Protein 8.0 g/dL (5.7-8.2)
[2025-03-19 08:37] LABS: Albumin 4.9 g/dL (3.2-4.8); Calcium 10.5 mg/dL (8.7-10.4)
[2025-03-19 09:58] VITALS: BP 128/64; PULSE 66; RESP 16; TEMP 98.4; O2SAT 98
[2025-03-19] MEDS ORDERED: AUG875T PO (10:07)
== END 2025-03-19 10:21 | disposition home or self-care (01) ==
LOC: ER 07:09
DX: M54.6 Pain in thoracic spine (principal); J45.909 Unspecified asthma, uncomplicated; Z88.8 Allergy status to other drugs, medicaments and biological substances; Z88.1 Allergy status to other antibiotic agents; Z79.899 Other long term (current) drug therapy
CPT/HCPCS: 36415; 71046; 80053; 81001; 84484; 85025; 85652; 86141